=== PATIENT | male | born 1955 | race Asian ===

== ENCOUNTER 2023-06-12 12:55 | Emergency (ER) | payer BC, SELFPAY ==
[2023-06-12] VITALS (11 sets, daily range): BP systolic 160–191; BP diastolic 90–109; PULSE 66–78; RESP 13–21; TEMP 36.6; O2SAT 95–99; BMI 24.1
--- NOTE | 2023-06-12 13:09 | DI.CT.S_ITS ---
PROCEDURE: CT ANGIO HEAD AND NECK INDICATIONS: vision changes TECHNIQUE: After the administration of intravenous contrast, 1 mm thick sections acquired from the aortic arch through the [place]. 3-dimensional moivvmh-mqstmdvaq-zkieadocqp (MIP) and/or volume rendering reformats were acquired of the central intracranial vasculature and neck separately. For radiation dose reduction, the following was used: automated exposure control, adjustment of mA and/or kV according to patient size. COMPARISON: None. FINDINGS: Image quality: Diagnostic. BRAIN: CSF spaces: Ventricles are normal in size and shape. Basal cisterns are patent. No extra-axial fluid collections. Brain: No significant abnormality of the brain can be seen. Skull and face: Calvarium and facial bones appear intact, without suspicious lesions. Orbits appear normal. Sinuses: there is moderate mucosal thickening within the bilateral ethmoid air cells. Bilateral maxillary sinus retention cysts are present. Mastoids are clear. HEAD CT ANGIOGRAPHY: Anterior circulation: Intracranial internal carotid arteries are normal in size and flow. The flow within the paired anterior cerebral arteries is normal and symmetric. The flow within the middle cerebral arteries is normal and symmetric. The anterior communicating artery is seen. No aneurysms are seen. Posterior circulation: Visualized portions of the vertebral arteries demonstrate normal caliber, and join to form a normal appearing basilar artery. Flow within the posterior cerebral arteries is normal and symmetric. No aneurysms are seen. NECK CT ANGIOGRAPHY: Carotid system: The great vessels demonstrate a conventional anatomy as they arise from the aortic arch. The origins of the common carotid arteries appear patent. The common carotid arteries demonstrate normal caliber and courses. The bifurcation regions are both widely patent. The internal carotid arteries demonstrate normal calibers and courses. Posterior circulation: The origins of the vertebral arteries both appear widely patent. The more superior extracranial portions of both vertebral arteries also demonstrate normal courses and calibers. They join to form a normal appearing basilar artery. Soft tissues: Visualized neck soft tissues demonstrate no suspicious abnormalities. Bones: No suspicious bony lesions. Visualized cervical spine appears normally aligned. IMPRESSION: 1. No acute process involving the arterial tree of the head and neck 2. Sinus disease. Any quantitative measurements of stenosis were performed using NASCET criteria. Dictated by: Lian Austin M.D. on 06/12/2023 at 13:32 Approved by: Lian Austin M.D. on 06/12/2023 at 13:38
--- NOTE | 2023-06-12 13:09 | DI.RAD.S_ITS ---
PROCEDURE: XR CHEST 1V INDICATIONS: chest pain TECHNIQUE: One view of the chest was acquired. COMPARISON: [facility], , CHEST 2 VIEW, 04/07/2015, 14:27. FINDINGS: Surgical changes and devices: None. Lungs and pleura: Lungs are clear. No pleural effusions or pneumothorax. Mediastinum: Mediastinal contours appear normal. Heart size is normal. Bones and chest wall: No suspicious bony lesions. Overlying soft tissues appear unremarkable. IMPRESSION: No acute cardiopulmonary abnormality is seen. Dictated by: Lian Austin M.D. on 06/12/2023 at 13:51 Approved by: Lian Austin M.D. on 06/12/2023 at 13:51
--- NOTE | 2023-06-12 13:09 | DI.CT.S_ITS ---
PROCEDURE: CT HEAD/BRAIN WO CON INDICATIONS: vision changes TECHNIQUE: Noncontrast 4.5 mm thick angled axial sections acquired from the foramen magnum to the vertex, with coronal and sagittal reformats. For radiation dose reduction, the following was used: automated exposure control, adjustment of mA and/or kV according to patient size. COMPARISON: None. FINDINGS: Image quality: Diagnostic. CSF spaces: Basal cisterns are patent. No extra-axial fluid collections. Ventricles are normal in size and shape. Brain: No midline shift. No intracranial masses or hemorrhage. Gu[place]-white matter interface is normal. Skull and face: Calvarium and visualized facial bones are intact, without suspicious lesions. Sinuses: Visualized sinuses and mastoids are clear. IMPRESSION: No acute intracranial pathology. Approved by: Mathew Nguyễn M.D. on 06/12/2023 at 12:32
[2023-06-12 13:25] LABS: Add Manual Diff / Slide Review NO; Basophils Absolute Auto 100 /uL (0-100); Basophils Percent Auto 1.1 % (0-2); Eosinophils Absolute Auto 300 /uL (0-450); Eosinophils Percent Auto 4.6 % (2-4); Hematocrit 44.2 % (41-53); Hemoglobin 15.1 g/dL (13.5-17.5); Lymphocytes Absolute Auto 1500 /uL (1100-4500); Lymphocytes Percent Auto 21.8 % (25-40); Mean Corpuscular HGB Conc 34.2 % (30-36); Mean Corpuscular Hemoglobin 32.3 PG (26-34); Mean Corpuscular Volume 94.4 fL (80-100); Monocytes Absolute Auto 700 /uL (0-900); Monocytes Percent Auto 9.6 % (3-14); Neutrophils Absolute Auto 4500 /uL (1500-7000); Neutrophils Percent Auto 62.9 % (50-75); Platelet Count 274 X10^3/uL (150-400); Red Blood Cell Count 4.68 X10^6/uL (4.5-5.9); Red Cell Distribution Width 13.6 % (11.6-14.8); White Blood Cell Count 7.1 X10^3/uL (4.5-11.0)
[2023-06-12 13:37] LABS: Prothrombin Time 11.1 SECONDS (9.4-12.5)
[2023-06-12 13:40] LABS: PTT Partial Thromboplastin Tim 33 SECONDS (25.1-36.5)
--- NOTE | 2023-06-12 14:19 | ED_ITS ---
HPI - Neuro Symptoms/Deficit General Chief Complaint: Neuro Symptoms/Deficit Stated Complaint: sent by [facility] for DBL vision and swelling in eyes Time Seen by Provider: 06/12/23 14:19 Source: patient Mode of arrival: Ambulatory History of Present Illness HPI Narrative: Patient 68-year-old male without significant past medical history but does not go to doctors presents today with double vision starting 2 days. He reports that it started while driving. He says the vision was so bad he had to representative government relations he could not tell lines on cars. Up close he does not have double vision ileus double vision with both eyes are open but it does resolve when 1 eye is covered. He has some tingling in his right fingertips but he reports that is always there it is not new. He is no facial droop difficulty speaking numbness tingling or weakness is. He has never had any surgery on his eyes. He denies any floaters. No loss of vision. He is noted to be hypertensive in the ED which does improve some without intervention. On Anticoagulants: No Related Data Allergies Allergy/AdvReac Type Severity Reaction Status Date / Time Penicillins [PENICILLINS] Allergy Unknown Unverified 10/08/17 12:17 Review of Systems Hematologic/Lymphatic On Anticoagulants: No Patient History Social History Smoking Status: Never smoker Smoking Status: Never smoker alcohol intake frequency: a few times a week Substance Use Type: does not use Exam Initial Vital Signs Initial Vital Signs: Vital Signs Temperature 97.8 F 06/12/23 13:03 Pulse Rate 75 06/12/23 13:03 Respiratory Rate 18 06/12/23 13:03 Blood Pressure 191/100 H 06/12/23 13:03 Pulse Oximetry 97 06/12/23 13:03 Oxygen Delivery Method Room Air 06/12/23 13:03 GENERAL: Alert pleasant well-appearing 68-year-old male and in no acute distress. HEENT: Head atraumatic,EOMI, pupils reactive, face symmetric, moist mucous membranes CARDIOVASCULAR: Regular rate and rhythm without murmurs, rubs or gallops. RESPIRATORY: Breath sounds equal bilaterally, no wheezes rales or rhonchi. ABDOMEN: Soft, nontender. Normoactive bowel sounds all 4 quadrants. No guarding or rebound. EXTREMITIES: Normal range of motion, no clubbing or edema. Neurovascularly intact NEUROLOGICAL: Alert and oriented x4.Normal gait and speech. Cranial nerves II through XII grossly intact. Good nucdrf-ci-wylj, good vngw-se-miku, strength equal bilaterally, no dysarthria or aphasia, sensation in tact to soft touch bilaterally, no visual changes, no facial droop SKIN: Warm, dry, no laceration, no petechiae, no rashes or lesions. Scores NIH Stroke Scale Level of Conciousness: Alert, keenly responsive Ask month/age: Answers both questions correctly. Open/close eyes, close hand: Performs both tasks correctly Best gaze horizontal: Normal Visual campbell: No visual loss Facial palsy: Normal symetrical movement Left arm drift: No drift for full 10 sec Right arm drift: No drift for full 10 sec Left leg drift: No drift for full 5 sec Right leg drift: No drift for full 5 sec Limb ataxia: Absent Sensory on face/arms/legs: Normal, no sensory loss Best language: No aphasia, normal Dysarthria: Normal Extinction or inattention: No abnormality Total NIH Stroke scale score: 0 Course Orders Ordered: Discontinued Medications Aspirin (Aspirin 81 Mg Chew Tab) 324 mg PO NOW ONE Stop: 06/12/23 13:10 Last Admin: 06/12/23 13:15 Dose: Not Given Documented By: MS Vital Signs Vital signs: Vital Signs - 8 hr 06/12/23 13:03 06/12/23 13:04 06/12/23 13:26 Temperature 97.8 F Pulse Rate 75 71 77 Respiratory Rate 18 15 17 Blood Pressure 191/100 H Pulse Oximetry 97 99 98 Oxygen Delivery Method Room Air 06/12/23 13:26 06/12/23 13:30 06/12/23 13:30 Temperature Pulse Rate 78 Respiratory Rate 15 Blood Pressure 181/91 H 178/101 H Pulse Oximetry 99 Oxygen Delivery Method 06/12/23 13:45 06/12/23 13:45 06/12/23 14:00 Temperature Pulse Rate 75 74 Respiratory Rate 13 13 Blood Pressure 168/101 H Pulse Oximetry 98 98 Oxygen Delivery Method 06/12/23 14:00 06/12/23 14:15 06/12/23 14:15 Temperature Pulse Rate 73 Respiratory Rate 14 Blood Pressure 162/95 H 164/102 H Pulse Oximetry 98 Oxygen Delivery Method 06/12/23 14:30 06/12/23 14:30 06/12/23 15:10 Temperature Pulse Rate 71 78 Respiratory Rate 13 21 Blood Pressure 186/109 H Pulse Oximetry 98 97 Oxygen Delivery Method 06/12/23 15:25 06/12/23 15:25 06/12/23 15:30 Temperature Pulse Rate 66 Respiratory Rate 20 Blood Pressure 168/92 H 160/90 H Pulse Oximetry 97 Oxygen Delivery Method 06/12/23 15:30 Temperature Pulse Rate 67 Respiratory Rate 16 Blood Pressure Pulse Oximetry 95 Oxygen Delivery Method MDM - Neuro Symptoms/Deficit Lab Data 06/12/23 13:15 06/12/23 13:15 Labs: Lab Results 06/12/23 Range/Units 13:15 WBC 7.1 (4.5-11.0) X10^3/uL RBC 4.68 (4.5-5.9) X10^6/uL Hgb 15.1 (13.5-17.5) g/dL Hct 44.2 (41-53) % MCV 94.4 (80-100) fL MCH 32.3 (26-34) PG MCHC 34.2 (30-36) % RDW 13.6 (11.6-14.8) % Plt Count 274 (150-400) X10^3/uL Neut % (Auto) 62.9 (50-75) % Lymph % (Auto) 21.8 L (25-40) % Winston % (Auto) 9.6 (3-14) % Eos % (Auto) 4.6 H (2-4) % Baso % (Auto) 1.1 (0-2) % Neut # (Auto) 4500 (6462-1017) /uL Lymph # (Auto) 1500 (7768-2410) /uL Winston # (Auto) 700 (0-900) /uL Eos # (Auto) 300 (0-450) /uL Baso # (Auto) 100 (0-100) /uL PT 11.1 (9.4-12.5) SECONDS INR 1.0 (0.9-1.3) APTT 33 (25.1-36.5) SECONDS Sodium 137 (137-145) mmol/L Potassium 4.2 (3.4-5.1) mmol/L Chloride 103 (98-107) mmol/L Carbon Dioxide 27 (22-32) mmol/L BUN 16 (9-20) mg/dL Creatinine 0.80 (0.66-1.25) mg/dL Estimated GFR > 60 (>60) mL/min BUN/Creatinine Ratio 20.0 (6-22) Glucose 103 (80-110) mg/dL Calcium 9.7 (8.4-10.2) mg/dL Magnesium 2.1 (1.6-2.3) mg/dL Total Bilirubin 0.7 (0.2-1.3) mg/dL AST 33 (17-59) IU/L ALT 23 (<50) IU/L Alkaline Phosphatase 60 (38-126) U/L Total Creatine Kinase 78 (55-170) U/L Troponin I < 0.012 (0.01-0.034) ng/mL Total Protein 8.6 H (6.3-8.2) g/dL Albumin 4.5 (3.5-5.0) g/dL Globulin 4.1 (1.7-4.1) g/dL Albumin/Globulin Ratio 1.1 (1.0-2.8) Lipase 124 (23-300) U/L Imaging Data CT scan - head: Radiologist's Impression: PROCEDURE: CT HEAD/BRAIN WO CON INDICATIONS: vision changes TECHNIQUE: Noncontrast 4.5 mm thick angled axial sections acquired from the foramen magnum to the vertex, with coronal and sagittal reformats. For radiation dose reduction, the following was used: automated exposure control, adjustment of mA and/or kV according to patient size. COMPARISON: None. FINDINGS: Image quality: Diagnostic. CSF spaces: Basal cisterns are patent. No extra-axial fluid collections. Ventricles are normal in size and shape. Brain: No midline shift. No intracranial masses or hemorrhage. [place]-white matter interface is normal. Skull and face: Calvarium and visualized facial bones are intact, without suspicious lesions. Sinuses: Visualized sinuses and mastoids are clear. IMPRESSION: No acute intracranial pathology. Approved by: Mathew Nguyễn M.D. on 06/12/2023 at 12:32 CTA - brain/neck: Radiologist's Impression: PROCEDURE: CT ANGIO HEAD AND NECK INDICATIONS: vision changes TECHNIQUE: After the administration of intravenous contrast, 1 mm thick sections acquired from the aortic arch through the [place]. 3-dimensional hrjiumw-qqaygaver-jvjgluptsg (MIP) and/or volume rendering reformats were acquired of the central intracranial vasculature and neck separately. For radiation dose reduction, the following was used: automated exposure control, adjustment of mA and/or kV according to patient size. COMPARISON: None. FINDINGS: Image quality: Diagnostic. BRAIN: CSF spaces: Ventricles are normal in size and shape. Basal cisterns are patent. No extra-axial fluid collections. Brain: No significant abnormality of the brain can be seen. Skull and face: Calvarium and facial bones appear intact, without suspicious lesions. Orbits appear normal. Sinuses: there is moderate mucosal thickening within the bilateral ethmoid air cells. Bilateral maxillary sinus retention cysts are present. Mastoids are clear. HEAD CT ANGIOGRAPHY: Anterior circulation: Intracranial internal carotid arteries are normal in size and flow. The flow within the paired anterior cerebral arteries is normal and symmetric. The flow within the middle cerebral arteries is normal and symmetric. The anterior communicating artery is seen. No aneurysms are seen. Posterior circulation: Visualized portions of the vertebral arteries demonstrate normal caliber, and join to form a normal appearing basilar artery. Flow within the posterior cerebral arteries is normal and symmetric. No aneurysms are seen. NECK CT ANGIOGRAPHY: Carotid system: The great vessels demonstrate a conventional anatomy as they arise from the aortic arch. The origins of the common carotid arteries appear patent. The common carotid arteries demonstrate normal caliber and courses. The bifurcation regions are both widely patent. The internal carotid arteries demonstrate normal calibers and courses. Posterior circulation: The origins of the vertebral arteries both appear widely patent. The more superior extracranial portions of both vertebral arteries also demonstrate normal courses and calibers. They join to form a normal appearing basilar artery. Soft tissues: Visualized neck soft tissues demonstrate no suspicious abnormalities. Bones: No suspicious bony lesions. Visualized cervical spine appears normally aligned. IMPRESSION: 1. No acute process involving the arterial tree of the head and neck 2. Sinus disease. Any quantitative measurements of stenosis were performed using NASCET criteria. Dictated by: Lian Austin M.D. on 06/12/2023 at 13:32 MR brain: Radiologist's Impression: PROCEDURE: MR HEAD/BRAIN WO CON INDICATIONS: double vision x 2 days TECHNIQUE: Non-contrast axial T1 spin echo, axial T2 fast spin echo, sagittal and axial FLAIR, coronal T2 fast spin echo, axial gradient echo, axial diffusion and ADC through the brain. COMPARISON: None. FINDINGS: Image quality: Excellent. CSF spaces: Ventricles appear symmetric in size and shape. Basal cisterns are patent. No extra-axial fluid collections. Brain: No intracranial bleeds or mass effects. There is cerebral volume loss for age. There are periventricular and deep white matter chronic small vessel ischemic changes. Brainstem appears normal. Diffusion-weighted images show no acute ischemic insults. No chronic ischemic insults. Normal intravascular flow voids are present. Skull and face: Calvarial bone marrow is normal in signal. Orbits are normal. Sinuses: Moderate bilateral ethmoid sinus mucosal thickening. Mild left frontal sinus mucosal thickening. Mild bilateral maxillary sinus mucosal thickening. IMPRESSION: 1. Mild volume loss and small vessel ischemic disease 2. No acute process. No recent infarct. 3. Sinus disease. Dictated by: Lian Austin M.D. on 06/12/2023 at 15:23 Approved by: Lian Austin M.D. on 06/12/2023 at 15 ECG Data Interpretation: Normal sinus rhythm rate 66 HI interval 164 QRS 0 [address] changes MDM Narrative Medical decision making narrative: Patient 68-year-old male presents today with double vision ongoing for last 2 days. He presented his vision is so bad that he is not able to drive. He has no other focal deficits. No visual loss. Vision is corrected when he closes eye. He is noted to be hypertensive in the ED without prior history of blood pressure but does regularly see providers. Blood pressure improved without any intervention. Blood work is not show any end-organ damage. NIH stroke scale is 0. He is no peripheral visual loss. Head CT, CT angio are both negative for infarction as well. He is no evidence clinically of large vessel occlusion or on CT angio. MRI ultimately also ruled process. Other considerations include retinal detachment, retinal artery occlusion, of the does not clinically correlate. Recommend following up with Ophthalmology Discharge Plan Departure Patient Disposition: Home Clinical Impression: Visual changes Instructions: DI for Double Vision Activity Restrictions/Additional Instructions: *You have been diagnosed with visual changes/double vision *What to do: At this time please check your blood pressure once daily and record it. He may need to be a pressure medication. Stroke workup including MRI in the ED today was negative. I do recommend that you follow-up ophthalmology in regards to your double vision *Continue to take medications as directed *Follow up with your primary care provider in 2-3 days or call [phone] Follow-up with ophthalmology call today to schedule appointment *Return to ER if you should have increased numbness tingling weakness facial droop difficulty speaking weakness or any new, worsening or concerning symptoms Referrals: Malathi Wright MD [Physician] - Tray Jimenes MD [Physician] - Miscellaneous,MD Joana [Primary Care Provider] - Stand Alone Forms: Patient Portal/API
[2023-06-12 14:27] LABS: Alanine Aminotransferase 23 IU/L (<50); Albumin 4.5 g/dL (3.5-5.0); Albumin Globulin Ratio 1.1 (1.0-2.8); Alkaline Phosphatase 60 U/L (38-126); Aspartate Aminotransferase 33 IU/L (17-59); Bilirubin Total 0.7 mg/dL (0.2-1.3); Blood Urea Nitrogen 16 mg/dL (9-20); Calcium 9.7 mg/dL (8.4-10.2); Carbon Dioxide 27 mmol/L (22-32); Chloride 103 mmol/L (98-107); Creatine Kinase 78 U/L (55-170); Estimated Glomerular Filt Rate > 60 mL/min (>60); Globulin 4.1 g/dL (1.7-4.1); Glucose 103 mg/dL (80-110); HEMOLYSIS < 15 (0-50); Lipase 124 U/L (23-300); Magnesium 2.1 mg/dL (1.6-2.3); Potassium 4.2 mmol/L (3.4-5.1); Sodium 137 mmol/L (137-145); Total Protein 8.6 g/dL (6.3-8.2)
--- NOTE | 2023-06-12 14:35 | DI.MRI.S_ITS ---
PROCEDURE: MR HEAD/BRAIN WO CON INDICATIONS: double vision x 2 days TECHNIQUE: Non-contrast axial T1 spin echo, axial T2 fast spin echo, sagittal and axial FLAIR, coronal T2 fast spin echo, axial gradient echo, axial diffusion and ADC through the brain. COMPARISON: None. FINDINGS: Image quality: Excellent. CSF spaces: Ventricles appear symmetric in size and shape. Basal cisterns are patent. No extra-axial fluid collections. Brain: No intracranial bleeds or mass effects. There is cerebral volume loss for age. There are periventricular and deep white matter chronic small vessel ischemic changes. Brainstem appears normal. Diffusion-weighted images show no acute ischemic insults. No chronic ischemic insults. Normal intravascular flow voids are present. Skull and face: Calvarial bone marrow is normal in signal. Orbits are normal. Sinuses: Moderate bilateral ethmoid sinus mucosal thickening. Mild left frontal sinus mucosal thickening. Mild bilateral maxillary sinus mucosal thickening. IMPRESSION: 1. Mild volume loss and small vessel ischemic disease 2. No acute process. No recent infarct. 3. Sinus disease. Dictated by: Lian Austin M.D. on 06/12/2023 at 15:23 Approved by: Lian Austin M.D. on 06/12/2023 at 15:27
[2023-06-12 19:09] LABS: Troponin I < 0.012 ng/mL (0.01-0.034)
--- NOTE | 2023-06-13 14:34 | PC.NURSE ---
Provider summary sent to [facility] by Fax as pt is following up there at this time.
== END 2023-06-12 16:10 | disposition home or self-care (01) ==
PROVIDERS: Emergency Provider Emergency Medicine
DX: H53.2 Diplopia (principal); R07.9 Chest pain, unspecified
CPT/HCPCS: 36415; 70450; 70496; 70498; 70551; 71045; 80053; 82550; 83690; 83735; 84484; 85025; 85610; 85730; 93005; 93010; 99285

== ENCOUNTER → 2023-06-26 09:19 | Outpatient (CLI) | payer BC, SELFPAY ==
[2023-06-26 10:06] LABS: Hemoglobin A1C% w Est Avg Glu 5.8 % (4.0-6.0)
[2023-06-26 10:14] LABS: Cholesterol 232 mg/dL (140-199); HDL Cholesterol 52 mg/dL (40-60); LDL Cholesterol Calculated 153 mg/dL (<100); Triglycerides 133 mg/dL (35-150)
[2023-06-26 10:42] LABS: Creatinine Urine Random 30.6 mg/dL
[2023-06-26 10:43] LABS: Prostate Specific Antigen Scrn 1.35 ng/mL (0.1-4.0)
[2023-06-26 10:46] LABS: Microalbumin Urine Random < 0.6 mg/dL (0-1.6)
[2023-06-26 17:03] LABS: HIV 1 & 2 Ab/Ag 4th Gen Combo NEGATIVE (NEGATIVE); Hep C Virus Ab w/Reflex Quant NEGATIVE s/c (NEGATIVE)
== END ==
PROVIDERS: PCP Family Medicine; Referring Provider Family Medicine; Visit Provider Family Medicine
DX: Z13.220 Encounter for screening for lipoid disorders (principal); Z12.5 Encounter for screening for malignant neoplasm of prostate; Z11.59 Encounter for screening for other viral diseases; Z13.1 Encounter for screening for diabetes mellitus; Z11.4 Encounter for screening for human immunodeficiency virus [HIV]; I10 Essential (primary) hypertension
CPT/HCPCS: 36415; 80061; 82043; 82570; 83036; 86803; 87389; G0103

== ENCOUNTER → 2024-03-04 12:00 | Outpatient (CLI) | payer BC, SELFPAY ==
[2024-03-04 13:04] LABS: BUN Creatinine Ratio 18.2 (6-22); Blood Urea Nitrogen 16 mg/dL (9-20); Calcium 9.4 mg/dL (8.4-10.2); Carbon Dioxide 27 mmol/L (22-32); Chloride 105 mmol/L (98-107); Estimated Glomerular Filt Rate > 60 mL/min (>60); Glucose 110 mg/dL (80-110); HEMOLYSIS < 15 (0-50); Potassium 4.5 mmol/L (3.4-5.1); Sodium 139 mmol/L (137-145)
== END ==
PROVIDERS: PCP Family Medicine; Referring Provider Family Medicine; Visit Provider Family Medicine
DX: I10 Essential (primary) hypertension (principal)
CPT/HCPCS: 36415; 80048

== ENCOUNTER → 2024-06-25 08:37 | Outpatient (CLI) | payer BC, SELFPAY ==
[2024-06-25 09:15] LABS: Add Manual Diff / Slide Review NO; Basophils Absolute Auto 100 /uL (0-100); Eosinophils Absolute Auto 500 /uL (0-450); Eosinophils Percent Auto 9.5 % (2-4); Hematocrit 43.4 % (41-53); Hemoglobin 14.9 g/dL (13.5-17.5); Lymphocytes Absolute Auto 1600 /uL (1100-4500); Lymphocytes Percent Auto 29.4 % (25-40); Mean Corpuscular HGB Conc 34.3 % (30-36); Mean Corpuscular Hemoglobin 32.5 PG (26-34); Mean Corpuscular Volume 94.9 fL (80-100); Monocytes Absolute Auto 500 /uL (0-900); Monocytes Percent Auto 9.1 % (3-14); Neutrophils Absolute Auto 2800 /uL (1500-7000); Platelet Count 266 X10^3/uL (150-400); Red Blood Cell Count 4.57 X10^6/uL (4.5-5.9); Red Cell Distribution Width 13.2 % (11.6-14.8); White Blood Cell Count 5.6 X10^3/uL (4.5-11.0)
[2024-06-25 09:46] LABS: BUN Creatinine Ratio 15.6 (6-22); Blood Urea Nitrogen 15 mg/dL (9-20); Calcium 9.3 mg/dL (8.4-10.2); Carbon Dioxide 26 mmol/L (22-32); Chloride 104 mmol/L (98-107); Cholesterol 143 mg/dL (140-199); Estimated Glomerular Filt Rate > 60 mL/min (>60); Glucose 108 mg/dL (80-110); HDL Cholesterol 61 mg/dL (40-60); HEMOLYSIS < 15 (0-50); LDL Cholesterol Calculated 62 mg/dL (<100); Potassium 4.2 mmol/L (3.4-5.1); Sodium 136 mmol/L (137-145); Triglycerides 101 mg/dL (35-150)
[2024-06-25 09:48] LABS: Creatinine Urine Random 98.11 mg/dL
[2024-06-25 09:51] LABS: Microalbumin Urine Random < 0.6 mg/dL (0-1.6)
== END ==
PROVIDERS: PCP Family Medicine; Referring Provider Family Medicine; Visit Provider Family Medicine
DX: Z13.9 Encounter for screening, unspecified (principal); I10 Essential (primary) hypertension; E78.00 Pure hypercholesterolemia, unspecified
CPT/HCPCS: 36415; 80048; 80061; 82043; 82570; 85025